=== PATIENT | female | born 1955 | race Caucasian/White ===

== ENCOUNTER 2017-01-09 00:37 | Day surgery (SDC) | payer MEDICARE, MEDICAID ==
[2017-01-09] VITALS (10 sets, daily range): BP systolic 121–135; BP diastolic 84–106; PULSE 87–108; RESP 14–20; O2SAT 95–98
[~2017-01-09] VITALS: Ht 162.6 cm; Wt 58.6 kg
[~2017-01-09 00:37] MED LIST: AMT50T PO; ASPI-973 PO; ATOR40TA69 PO; CLOM25CA2 PO; METO50TA3 PO; MULT1CAP33 PO; OMEG-140 PO; PANT40TA3 PO; PRED50TA PO; RISP1TAB90 PO
[2017-01-09] MEDS ORDERED: 0.9% Sodium Chloride 1,000 ML IV ONE (07:00)
[2017-01-09 07:36] LABS: BASOPHILS % (AUTO) 0.4 % (0-3); EOSINOPHILS % (AUTO) 0 % (0-5); MONOCYTES % (AUTO) 0.4 % (4-12); Mean Corpuscular Hemoglobin 31.9 pg (27.0-35.0); Mean Corpuscular Volume 93.1 fL (81-100); NEUTROPHILS % (AUTO) 81.1 % (40-74); Platelet Count 365 bil/L (150-400)
[2017-01-09] MEDS ORDERED: Heparin 1,000 Unit/mL 10 mL Inj ONE (07:59)
[2017-01-09] MEDS ORDERED: Heparin 10,000 Unit/1,000 mL NS Premix IV ONE (07:59)
[2017-01-09] MEDS ORDERED: Heparin 1,000 Units/500 mL NS Premix IV ONE (07:59)
[2017-01-09] MEDS ORDERED: predniSONE 10 mg Tablet PO SCH (08:30)
[2017-01-09] MEDS ORDERED: fentaNYL-PF 50 mCg/mL 2 mL Inj ONE (08:59)
[2017-01-09] MEDS ORDERED: 0.9% Sodium Chloride 1,000 ML IV PRN (09:44)
[2017-01-09] MEDS ORDERED: 0.9% Sodium Chloride 250 ML IV PRN (09:44)
[2017-01-09] MEDS ORDERED: Ondansetron 2 mg/mL 2 mL Inj IVPUSH PRN (09:45)
[2017-01-09] MEDS ORDERED: Atropine 1 mg/10 mL (Code) Syringe IVPUSH PRN (09:45)
[2017-01-09] MEDS ORDERED: HYDROcodone-APAP 5-325 mg Tablet PO PRN (09:45)
--- NOTE | 2017-01-09 11:56 | PCM.CVCATH ---
Cardiac Cath Report Date of Service Jan 09, 2017 Primary Indication Abnormal nuclear stress test and exertional dyspnea and chest pain. Procedure 1 Left heart catheterization 2. Left ventricular angiogram 3. Selective coronary angiogram 4. Right femoral angiogram Procedure Details The patient was brought into the catheterization laboratory. The patient was nothing by mouth since midnight. The patient was prepped and sterilized in the appropriate fashion. Local anesthetic was given to the right groin region with lidocaine 1%. A percutaneous stick to the right groin region with an 18-gauge Seldinger needle was attempted. A 6 Serbian sheath was inserted into the right femoral artery. A 6 Serbian FL 4 diagnostic catheter was advanced and engaged into the left main. The left coronary angiography was performed in multiple views. The catheter was exchanged over the wire for a 6 Serbian FR4 diagnostic catheter. The catheter was engaged in the right coronary ostium and the right coronary angiography was performed in multiple views. The catheter was removed over the wire and exchanged for 6 Serbian angle pigtail catheter. LV hemodynamics were recorded. Left ventricular angiography was performed at 10 mL /s for total 30 mL of contrast. LV pullback was performed. All catheters were removed. The right femoral angiogram was performed to evaluate for closure device. Hemostasis was obtained with Star close. The patient was transferred back to special observation unit for post procedural monitoring. There were no immediate complications. Total fluoroscopy time: 3.6 minutes Estimated blood loss: 10 mL Total contrast: 80 mL Findings 1. Hemodynamics: The left ventricular systolic pressure was estimated at 131 mmHg and the left ventricular end-diastolic pressure was estimated at 10 mmHg. There is no significant gradient during pullback. Aortic systemic pressure is 136/82 mmHg. 2. Selective coronary angiography: A. Left main: The artery has no evidence of significant disease. It bifurcates into the left anterior descending and left circumflex arteries. B. Left anterior descending artery: There is no evidence of significant disease. C. Left circumflex artery: This is a nondominant vessel. There is no evidence of significant disease. D. Right coronary artery: This is a large dominant vessel. There is no evidence of significant disease. The posterior descending artery and posterior lateral branch arteries have no evidence of significant disease either. 3. Left ventricular angiogram: The ejection fraction is around 70%. There is no appreciable LV wall motion abnormalities. 4. Right femoral angiogram: There is no evidence of significant disease. Summary 1. No evidence of coronary artery disease angiographically. 2. Borderline hyperdynamic left ventricular ejection fraction. Yfn Tripp MD Jan 09, 2017 11:56
== END 2017-01-09 23:59 | disposition home or self-care (01) ==
LOC: SOUO 00:37
PROVIDERS: ATTEND Internal Medicine Cardiovascular Disease
DX: R94.39 Abnormal result of other cardiovascular function study (principal); R07.9 Chest pain, unspecified; R06.09 Other forms of dyspnea; E78.2 Mixed hyperlipidemia; K21.9 Gastro-esophageal reflux disease without esophagitis; I73.9 Peripheral vascular disease, unspecified; Z87.891 Personal history of nicotine dependence; Z79.82 Long term (current) use of aspirin
CPT/HCPCS: 36415; 80048; 85025; 93005; 93458; 99152; 99153; C1760; C1769; J1200; J1644; J2060; J2250; J3010; J7030; Q9967